=== PATIENT | male | born 1955 | race Caucasian/White ===

== ENCOUNTER 2018-06-05 08:10 | Day surgery (SDC) | payer BC ==
[2018-06-04 12:50] VITALS: BMI 38.5
--- NOTE | 2018-06-05 01:30 | HP ---
HISTORY OF PRESENT ILLNESS: This is a 62-year-old male who comes in for a colonoscopy for colon cancer screening. The patient has no specific GI symptoms. He had a colonoscopy many years ago. The patient has had some polyps at that time. The patient also has a family history of colon cancer. The patient comes in for a colonoscopy for colon cancer screening. ALLERGIES: NONE. SOCIAL HISTORY: The patient does not smoke or drink alcohol. MEDICAL ILLNESS: 1. Hypothyroidism. 2. Hyperlipidemia. 3. Peripheral neuropathy. 4. Hypertension. 5. Appendectomy. 6. Cholecystectomy. 7. Knee surgery. ALLERGIES: NO DRUG ALLERGIES. SHELLFISH, BEE VENOM, AND HOUSE DUST. PHYSICAL EXAMINATION: WEIGHT: 300 pounds. VITAL SIGNS: Pulse is 74 and blood pressure 120/70. HEENT: Conjunctivae clear. CARDIOVASCULAR SYSTEM: First and second heart sounds heard. LUNGS: Clear to auscultation. ABDOMEN: Soft. No organomegaly. No tenderness. No masses. EXTREMITIES: Reveal no edema. ADMITTING DIAGNOSIS: A 62-year-old male comes in for a colonoscopy for colon cancer screening. Job ID: [id number]
[2018-06-05] MEDS ORDERED: Fentanyl 100 MCG/2 ML VIAL ONE (09:49)
[2018-06-05] MEDS ORDERED: Lidocaine 1% PF 5 ML VIAL ONE (14:54)
[2018-06-05] MEDS ORDERED: PROPOFOL 200 MG/20 ML VIAL ONE (14:54)
--- NOTE | 2018-06-05 18:54 | OP ---
DATE OF PROCEDURE: 06/05/2018 PROCEDURES PERFORMED: 1. Colonoscopy with polypectomy. 2. Colonoscopy with 7-Persian BICAP probe of the polypectomy site because of bleeding. PREOPERATIVE DIAGNOSIS: Colon cancer screening. POSTOPERATIVE DIAGNOSES: 1. Sigmoid diverticular disease. 2. Pedunculated polyp in sigmoid colon. 3. Retained stool in the right colon, which has been washed out. 4. Large hemorrhoids. DESCRIPTION OF PROCEDURE: The patient was placed on his left lateral position and was given sedation by Anesthesia Department. A rectal exam was done before the scope was advanced into the rectum. No lesions felt on rectal exam. A Pentax video colonoscope was introduced into the rectum and advanced all the way to the cecum. The prep was fair. The patient had some fecal coating in the mucosa, which was washed out. In the ileocecal area, cecum, no pathology seen. In the ascending colon, no pathology seen. In the hepatic flexure, transverse colon, splenic flexure, no pathology seen. In the descending colon, no pathology seen. The high sigmoid colon showed pedunculated polyp. The polyp was removed with snare cautery. Unfortunately, it did not cauterize well and has mild bleeding from the polypectomy site. The polypectomy site was cauterized with a 7-Persian BICAP therapy with good hemostasis. The sigmoid colon showed scattered diverticula. Retroflexion of scope in the rectum showed hemorrhoids. DISCHARGE PLANNING: Mr. Markus Blanca is a very pleasant 62-year-old male, came for colonoscopy for cancer screening. He underwent colonoscopy with polypectomy and also BICAP therapy of the polypectomy site. DISCHARGE RECOMMENDATION: 1. The patient advised to call me if he develops abdominal pain or fever. 2. In the absence of any of the above symptoms, he will come back to me in 2 weeks. Job ID: [id number]
== END 2018-06-05 13:35 | disposition home or self-care (01) ==
LOC: SDC 08:10
PROVIDERS: ATTEND Internal Medicine Gastroenterology
PROC: 0W3P8ZZ Control Bleeding in Gastrointestinal Tract, Via Natural or Artificial Opening Endoscopic (ICD-10-PCS; principal; 2018-06-05)
PROC: 0DBE8ZZ Excision of Large Intestine, Via Natural or Artificial Opening Endoscopic (ICD-10-PCS; principal; 2018-06-05)
DX: Z12.11 Encounter for screening for malignant neoplasm of colon (principal); D12.5 Benign neoplasm of sigmoid colon; K57.30 Diverticulosis of large intestine without perforation or abscess without bleeding; K56.41 Fecal impaction; K64.9 Unspecified hemorrhoids
CPT/HCPCS: 88305; J3010